=== PATIENT | female | born 1945 | race American Indian/Alaskan Native ===

== ENCOUNTER 2017-08-12 10:20 | Emergency (ER) | payer MEDICARE ==
[2017-08-12 11:08] VITALS: BP 153/77
--- NOTE | 2017-08-12 14:39 | Emergency Department Report ---
ED Extremity Problem HPI - General Chief complaint: Extremity Injury, Lower Stated complaint: LEFT FOOT SWELLING/PAIN Time Seen by Provider: 08/12/17 14:27 Source: patient Mode of arrival: Ambulatory Limitations: No Limitations - History of Present Illness Initial comments: Patient is a 72-year-old female with a history of left-sided footdrop who normally wears a brace with several days ago she was walking in her house without a brace and she stepped on her great toe. Patient states that the toenail lifted slightly has been bleeding since. Patient also has some swelling to the left great toe and the top of the foot. Patient tried to put on a salonpas patch which did not help and her significant disease irritated her skin. Patient states the pain is 5/10 in severity as aching sensation. - Related Data Home Medications Medication Instructions Recorded Confirmed Last Taken Atorvastatin (Nf) [Lipitor] 10 mg PO DAILY 02/22/14 08/05/14 08/05/14 Clopidogrel Bisulfate [Plavix] 75 mg PO DAILY 02/22/14 08/05/14 08/05/14 Hydrochlorothiazide [HCTZ] 100 mg PO DAILY 02/22/14 08/05/14 08/05/14 Metoprolol [Lopressor TAB] 100 mg PO BID 02/22/14 08/05/14 08/05/14 glipiZIDE [glipiZIDE ER] 5 mg PO DAILY 02/22/14 08/05/14 08/05/14 metFORMIN [Glucophage] 100 mg PO BID 02/22/14 08/05/14 08/05/14 Previous Rx's Medication Instructions Recorded Last Taken Type oxyCODONE /ACETAMINOPHEN [Percocet 1 tab PO Q6HR PRN #20 tablet 10/21/14 Unknown Rx 5/325 mg] Cephalexin [Keflex] 500 mg PO Q8HR #30 cap 07/10/15 Unknown Rx Sulfamethoxazole/Trimethoprim 1 each PO BID #14 tablet 08/12/17 Unknown Rx [Bactrim DS TAB] traMADol [Ultram 50 MG tab] 50 mg PO Q6HR PRN #12 tablet 08/12/17 Unknown Rx Allergies Allergy/AdvReac Type Severity Reaction Status Date / Time No Known Allergies Allergy Verified 07/10/15 12:39 ED Review of Systems ROS: Stated complaint: LEFT FOOT SWELLING/PAIN Other details as noted in HPI Comment: All other systems reviewed and negative ED Past Medical Hx - Past Medical History Hx Hypertension: Yes Hx Diabetes: Yes Hx Arthritis: Yes Additional medical history: CAD - Surgical History Hx Coronary Stent: Yes (2000) Additional Surgical History: surgery to left foot. partial hyster. LEFT HIP REPAIR AND REPLACEMENT - Social History Smoking Status: Current Some Day Smoker Substance Use Type: None - Medications Home Medications: Home Medications Medication Instructions Recorded Confirmed Last Taken Type Atorvastatin (Nf) [Lipitor] 10 mg PO DAILY 02/22/14 08/05/14 08/05/14 History Clopidogrel Bisulfate [Plavix] 75 mg PO DAILY 02/22/14 08/05/14 08/05/14 History Hydrochlorothiazide [HCTZ] 100 mg PO DAILY 02/22/14 08/05/14 08/05/14 History Metoprolol [Lopressor TAB] 100 mg PO BID 02/22/14 08/05/14 08/05/14 History glipiZIDE [glipiZIDE ER] 5 mg PO DAILY 02/22/14 08/05/14 08/05/14 History metFORMIN [Glucophage] 100 mg PO BID 02/22/14 08/05/14 08/05/14 History oxyCODONE /ACETAMINOPHEN [Percocet 1 tab PO Q6HR PRN #20 tablet 10/21/14 Unknown Rx 5/325 mg] Cephalexin [Keflex] 500 mg PO Q8HR #30 cap 07/10/15 Unknown Rx Sulfamethoxazole/Trimethoprim 1 each PO BID #14 tablet 08/12/17 Unknown Rx [Bactrim DS TAB] traMADol [Ultram 50 MG tab] 50 mg PO Q6HR PRN #12 tablet 08/12/17 Unknown Rx ED Physical Exam - General Limitations: No Limitations General appearance: alert, in no apparent distress - Head Head exam: Present: atraumatic, normocephalic - Eye Eye exam: Present: normal appearance - ENT ENT exam: Present: mucous membranes moist - Neck Neck exam: Present: normal inspection - Respiratory Respiratory exam: Present: normal lung sounds bilaterally. Absent: respiratory distress, wheezes, rales, rhonchi - Cardiovascular Cardiovascular Exam: Present: regular rate, normal rhythm. Absent: systolic murmur, diastolic murmur, rubs, gallop - GI/Abdominal GI/Abdominal exam: Present: soft, normal bowel sounds. Absent: distended, tenderness, guarding - Extremities Exam Extremities exam: Present: normal inspection, other (the patient's left great toe is partially lifted however it is not detached from the nail bed. Patient has a small amount of serosanguineous drainage from the side of the nail. Patient has some mild swelling to the great toe with some mild erythema.) - Back Exam Back exam: Present: normal inspection - Neurological Exam Neurological exam: Present: alert, oriented X3 - Psychiatric Psychiatric exam: Present: normal affect, normal mood - Skin Skin exam: Present: warm, dry, intact, normal color. Absent: rash ED Course Vital Signs 08/12/17 11:00 Temperature 98.8 F Pulse Rate 81 Blood Pressure 153/77 O2 Sat by Pulse 99 Oximetry ED Medical Decision Making - Medical Decision Making H and clinically has a toenail injury with possible toe cellulitis patient will be started on antibiotics and pain medicine be discharged home. Critical care attestation.: If time is entered above; I have spent that time in minutes in the direct care of this critically ill patient, excluding procedure time. ED Disposition Clinical Impression: Injury of toenail Qualifiers: Encounter type: initial encounter Laterality: left Qualified Code(s): S99.922A - Unspecified injury of left foot, initial encounter Cellulitis, toe Qualifiers: Laterality: left Qualified Code(s): L03.032 - Cellulitis of left toe Disposition: - TO HOME OR SELFCARE Is pt being admited?: No Does the pt Need Aspirin: No Condition: Stable Instructions: Cellulitis (ED), Subungual Hematoma (ED) Prescriptions: Sulfamethoxazole/Trimethoprim [Bactrim DS TAB] 1 each PO BID #14 tablet traMADol [Ultram 50 MG tab] 50 mg PO Q6HR PRN #12 tablet PRN Reason: Pain
== END 2017-08-12 14:45 | disposition home or self-care (01) ==
LOC: ED 10:20
DX: S99.922A Unspecified injury of left foot, initial encounter (principal); L03.032 Cellulitis of left toe; I10 Essential (primary) hypertension; E11.9 Type 2 diabetes mellitus without complications; M19.90 Unspecified osteoarthritis, unspecified site; I25.10 Atherosclerotic heart disease of native coronary artery without angina pectoris; F17.200 Nicotine dependence, unspecified, uncomplicated; Z95.818 Presence of other cardiac implants and grafts; Z96.642 Presence of left artificial hip joint; W22.8XXA Striking against or struck by other objects, initial encounter; Y93.01 Activity, walking, marching and hiking; Y99.8 Other external cause status; Y92.009 Unspecified place in unspecified non-institutional (private) residence as the place of occurrence of the external cause
CPT/HCPCS: 99282

== ENCOUNTER 2017-08-18 17:09 | Inpatient (IN) | payer MEDICARE ==
[2017-08-18] MEDS ORDERED: NACL 0.9% 500 ML 500 ML IV ONE (17:18)
--- NOTE | 2017-08-18 17:46 | Emergency Department Report ---
ED Fever HPI - General Chief Complaint: Fever Stated Complaint: FALL Time Seen by Provider: 08/18/17 17:43 Source: patient, EMS, old records Exam Limitations: other (difficult to obtain a clear history from patient) - History of Present Illness Initial Comments: 72-year-old woman is brought in by EMS with complaint of generalized body pain, including aches and most of the major joints of her body is, including upper extremities of shoulder elbow and wrist, and of lower extremities including knees and ankles; she was found to be hypertensive and tachycardic, and on arrival in the emergency department, she was also found to be febrile. It's difficult to get an accurate history from this patient, who tends to wander in her answers, although she is not overtly confused or demented. She lives by herself, reports that the discomfort in her joints and extremities has been present for approximately a week or so, but also reports that she was seen in the emergency department approximately a week ago, and placed on some unknown medications for possible infection. Review of patient's records show that she was treated for possible cellulitis of her left foot, which has a chronic foot drop, which she relates to a surgical mishap in the past. Patient lives independently, is ambulatory, but needs a brace on her left foot for support, is not aware of the antibiotics that were prescribed or cannot recount her compliance, and finds it difficult to give a coherent development of recurrent discomfort. She is not sure if she has a history of gout or arthritis , and believes she may have had episodes like this in the past. She is not aware of having had a fever. She has no other direct symptoms suggestive of acute infection, no sweating, no diaphoresis, and no sense of generalized feverishness. She has no cough or congestion, and is not aware that her foot is any better or any worse. Timing/Duration: week (1 week) Fever Severity/Quality: no fever, greater than 100.5 F Associated Symptoms: muscle aches, other (joint aches). denies: abdominal pain , chest pain, confusion, headache ED Review of Systems ROS: Stated complaint: FALL Other details as noted in HPI Constitutional: denies: chills, fever Respiratory: denies: cough, shortness of breath Cardiovascular: denies: chest pain, palpitations Endocrine: denies: flushing, increased thirst, increased urine Gastrointestinal: denies: abdominal pain, nausea, vomiting Genitourinary: denies: urgency, dysuria, frequency Musculoskeletal: arthralgia, myalgia Skin: other (skin sensitivity) Neurological: other (chronic foot drop). denies: confusion Psychiatric: denies: anxiety, depression ED Past Medical Hx - Past Medical History Hx Hypertension: Yes Hx Diabetes: Yes Hx Arthritis: Yes Additional medical history: CAD, current tobacco abuse - Surgical History Hx Coronary Stent: Yes (2000) Additional Surgical History: surgery to left foot. partial hyster. LEFT HIP REPAIR AND REPLACEMENT, chronic left foot drop, requires brace - Social History Smoking Status: Current Some Day Smoker Substance Use Type: None - Medications Home Medications: Home Medications Medication Instructions Recorded Confirmed Last Taken Type Atorvastatin (Nf) [Lipitor] 10 mg PO DAILY 02/22/14 08/05/14 08/05/14 History Clopidogrel Bisulfate [Plavix] 75 mg PO DAILY 02/22/14 08/05/14 08/05/14 History Hydrochlorothiazide [HCTZ] 100 mg PO DAILY 02/22/14 08/05/14 08/05/14 History Metoprolol [Lopressor TAB] 100 mg PO BID 02/22/14 08/05/14 08/05/14 History glipiZIDE [glipiZIDE ER] 5 mg PO DAILY 02/22/14 08/05/14 08/05/14 History metFORMIN [Glucophage] 100 mg PO BID 02/22/14 08/05/14 08/05/14 History oxyCODONE /ACETAMINOPHEN [Percocet 1 tab PO Q6HR PRN #20 tablet 10/21/14 Unknown Rx 5/325 mg] Cephalexin [Keflex] 500 mg PO Q8HR #30 cap 07/10/15 Unknown Rx Sulfamethoxazole/Trimethoprim 1 each PO BID #14 tablet 08/12/17 Unknown Rx [Bactrim DS TAB] traMADol [Ultram 50 MG tab] 50 mg PO Q6HR PRN #12 tablet 08/12/17 Unknown Rx ED Physical Exam - General Limitations: No Limitations General appearance: alert, in no apparent distress - Head Head exam: Present: atraumatic - Eye Eye exam: Present: PERRL - ENT ENT exam: Present: mucous membranes moist - Neck Neck exam: Present: tenderness (bilateral, paracervical) - Respiratory Respiratory exam: Absent: respiratory distress, wheezes, rales, rhonchi - Cardiovascular Cardiovascular Exam: Present: tachycardia - GI/Abdominal GI/Abdominal exam: Present: soft. Absent: distended, tenderness, guarding, rebound - Rectal Rectal exam: Present: deferred - Extremities Exam Extremities exam: Present: tenderness (major joints, including elbows, wrist, shoulder, knees, ankles), other (pressure bypass scars, right lower extremity). Absent: joint swelling - Back Exam Back exam: Present: normal inspection - Neurological Exam Neurological exam: Present: alert, CN II-XII intact, other (chronic left foot drop) - Psychiatric Psychiatric exam: Present: flat affect - Skin Skin exam: Present: warm, dry ED Course Vital Signs 08/18/17 08/18/17 08/18/17 17:21 17:27 17:30 Temperature 101.3 F H Pulse Rate 107 H Respiratory 17 Rate Blood Pressure 196/102 212/100 196/102 Blood Pressure [Left] O2 Sat by Pulse Oximetry 08/18/17 08/18/17 08/18/17 17:46 17:47 17:54 Temperature 102.4 F H Pulse Rate 112 H 109 H Respiratory 22 24 24 Rate Blood Pressure 196/102 Blood Pressure 194/98 [Left] O2 Sat by Pulse 99 100 100 Oximetry - Consultations Consultation #1: 08/18/17 18:45 Dr. Aaron Delacruz consult at with symptoms and criteria for sepsis, he will a bit patient for further care and initial antibiotics. ED Medical Decision Making - Lab Data Result diagrams: 08/18/17 17:29 08/18/17 17:29 - EKG Data -: EKG Interpreted by Me (EKG sinus tachycardia, LVH by voltage, nonspecific ST- T changes, no STEMI) EKG shows normal: sinus rhythm Rate: tachycardia - Radiology Data Radiology results: report reviewed (no acute cardiopulmonary abnormalities) Negative for acute infiltrate - Differential Diagnosis fever, sepsis, pneumonia, urinary tract infection, cellulitis Critical care time in (mins) excluding proc time.: 30 Critical care attestation.: If time is entered above; I have spent that time in minutes in the direct care of this critically ill patient, excluding procedure time. Critical Care Time: 30 minutes of critical care time was provided for this patient with sepsis criteria, of unclear source, independent of any billable procedures, of which there were none. ED Disposition Clinical Impression: Sepsis Qualifiers: Sepsis type: sepsis due to unspecified organism Qualified Code(s): A41.9 - Sepsis, unspecified organism Disposition: DC- TO HOME OR SELFCARE Is pt being admited?: Yes Condition: Stable
[2017-08-18] MEDS ORDERED: TYLENOL PO ONE (17:49)
[2017-08-18 17:52] LABS: Basophils # (Auto) 0.1 K/mm3 (0.0-0.1); Basophils % (Auto) 0.7 % (0.0-1.8); Eosinophils % (Auto) 0.2 % (0.0-4.3); Hematocrit 31.2 % (30.3-42.9); Hemoglobin 10.6 gm/dl (10.1-14.3); Lymphocytes # (Auto) 2.6 K/mm3 (1.2-5.4); Lymphocytes % (Auto) 19.8 % (13.4-35.0); Mean Corpuscular HGB Conc 34 % (30-34); Mean Corpuscular Hemoglobin 30 pg (28-32); Mean Corpuscular Volume 89 fl (79-97); Monocytes # (Auto) 0.7 K/mm3 (0.0-0.8); Monocytes % (Auto) 5.1 % (0.0-7.3); Platelet Count 266 K/mm3 (140-440); Red Blood Count 3.52 M/mm3 (3.65-5.03); Red Cell Distribution Width 14.7 % (13.2-15.2)
--- NOTE | 2017-08-18 17:58 | XRay Report ---
FINAL REPORT EXAM: XR CHEST 1V AP HISTORY: possible Sepsis TECHNIQUE: upright single view chest PRIORS: None. FINDINGS: Cardiac and mediastinal contours are unremarkable. No focal pulmonary infiltrate is identified. No pleural fluid collection seen. Pulmonary vasculature is unremarkable. IMPRESSION: Negative single-view chest
[2017-08-18] MEDS ORDERED: ROXICODONE PO ONE (18:00)
[2017-08-18 18:04] LABS: INR 1.02 (0.87-1.13)
[2017-08-18 18:08] LABS: Albumin 3.6 g/dL (3.9-5); Calcium 9.2 mg/dL (8.4-10.2)
[2017-08-18] MEDS ORDERED: NACL 0.9% 1000 ML 1,000 ML IV ONE (18:12)
[2017-08-18] MEDS ORDERED: SODIUM CHLORIDE FLUSH SYRINGE 10 ML IV PRN (18:48)
[2017-08-18] MEDS ORDERED: ZOFRAN IV PRN (18:48)
[2017-08-18] MEDS ORDERED: VANCOMYCIN VIAL IV ONE (18:48)
[2017-08-18] MEDS ORDERED: PROVENTIL IH PRN (18:48)
[2017-08-18] MEDS ORDERED: NACL 0.9% 1000 ML IV ONE (18:48)
[2017-08-18] MEDS ORDERED: PERCOCET 5/325 PO PRN ×2 (18:51→20:00)
[2017-08-18] MEDS ORDERED: ULTRAM PO PRN (18:51)
[2017-08-18] MEDS ORDERED: D50W (25GM) Syringe IV PRN (18:52)
--- NOTE | 2017-08-18 18:53 | History and Physical Report ---
History of Present Illness Chief complaint: I feel sick History of present illness: 72 YO Female with HTN, DM, OA, Nicotine Dependence, Debility, Neuropathy, CAD presents to ED for evaluation. Pt states that she has experienced generalized weakness, body aches and feeling sick for the past 1 week, with worsening symptoms over the past 1 day. EMS was notified and upon arrival the patient was found to have fever to 101.3. A code sepsis was called and the patient transported to [facility] for further care and evaluation. Pt seen and evaluated in ED and found to have ARF, as well as sepsis, and Hypertensive emergency. Pt admitted to [facility] unit. Past History Past Medical History: arthritis, CAD, diabetes, hypertension Past Surgical History: hysterectomy, total hip replacement, Other Social history: . denies: smoking, alcohol abuse, prescription drug abuse Family history: diabetes, hypertension Medications and Allergies Allergies Allergy/AdvReac Type Severity Reaction Status Date / Time No Known Allergies Allergy Verified 07/10/15 12:39 Home Medications Medication Instructions Recorded Confirmed Last Taken Type Atorvastatin (Nf) [Lipitor] 10 mg PO DAILY 02/22/14 08/05/14 08/05/14 History Clopidogrel Bisulfate [Plavix] 75 mg PO DAILY 02/22/14 08/05/14 08/05/14 History Hydrochlorothiazide [HCTZ] 100 mg PO DAILY 02/22/14 08/05/14 08/05/14 History Metoprolol [Lopressor TAB] 100 mg PO BID 02/22/14 08/05/14 08/05/14 History glipiZIDE [glipiZIDE ER] 5 mg PO DAILY 02/22/14 08/05/14 08/05/14 History metFORMIN [Glucophage] 100 mg PO BID 02/22/14 08/05/14 08/05/14 History oxyCODONE /ACETAMINOPHEN [Percocet 1 tab PO Q6HR PRN #20 tablet 10/21/14 Unknown Rx 5/325 mg] Cephalexin [Keflex] 500 mg PO Q8HR #30 cap 07/10/15 Unknown Rx Sulfamethoxazole/Trimethoprim 1 each PO BID #14 tablet 08/12/17 Unknown Rx [Bactrim DS TAB] traMADol [Ultram 50 MG tab] 50 mg PO Q6HR PRN #12 tablet 08/12/17 Unknown Rx Active Meds: Active Medications Acetaminophen (Tylenol) 650 mg PO Q4H PRN PRN Reason: Pain MILD(1-3)/Fever >100.5/SHAH Albuterol (Proventil) 2.5 mg IH Q4HRT PRN PRN Reason: Shortness Of Breath Atorvastatin Calcium (Lipitor) 10 mg PO DAILY [facility] Sodium Chloride (Nacl 0.9% 1000 Ml) 1,000 mls @ 999 mls/hr IV BOLUS ONE Stop: 08/18/17 19:12 Last Admin: 08/18/17 17:50 Dose: 999 mls/hr Piperacillin Sod/Tazobactam Sod (Zosyn/Ns 4.5gm/100ml) 4.5 gm in 100 mls @ 200 mls/hr IV Q8HR [facility]; Protocol Ondansetron HCl (Zofran) 4 mg IV Q8H PRN PRN Reason: Nausea And Vomiting Sodium Chloride (Sodium Chloride Flush Syringe 10 Ml) 10 ml IV BID HARIKA Sodium Chloride (Sodium Chloride Flush Syringe 10 Ml) 10 ml IV PRN PRN PRN Reason: LINE FLUSH Vancomycin HCl (Vancomycin Pharmacy To Dose) 1 each IV PKCONSULT [facility] Vancomycin HCl (Vancomycin Vial) 1,250 mg 20 mg/kg (1250 mg) IV ONCE ONE; Protocol Stop: 08/18/17 18:49 Review of Systems Constitutional: fever, weakness, malaise Ears, nose, mouth and throat: no ear pain, no ear discharge, no tinnitis, no decreased hearing, no nose pain, no nasal congestion Breasts: no change in shape, no swelling, no mass Cardiovascular: no chest pain, no orthopnea, no palpitations, no rapid/ irregular heart beat, no edema, no syncope Respiratory: no cough, no cough with sputum, no excessive sputum, no hemoptysis , no shortness of breath, no dyspnea on exertion Gastrointestinal: no abdominal pain, no nausea, no vomiting, no diarrhea, no constipation Genitourinary Female: no pelvic pain, no flank pain, no menorrhagia Rectal: no pain, no incontinence, no bleeding Musculoskeletal: no neck stiffness, no neck pain, no shooting arm pain, no arm numbness/tingling, no low back pain, no shooting leg pain, no leg numbness/ tingling, no hot joints, no morning stiffness Integumentary: no rash, no pruritis, no redness, no sores, no wounds, no jaundice, no boils Neurological: no head injury, no transient paralysis, no paralysis, no weakness , no parathesias, no numbness, no tingling, no seizures, no syncope Psychiatric: no anxiety, no memory loss, no change in sleep habits, no sleep disturbances, no insomnia, no hypersomnia, no change in appetite Exam - Constitutional Vitals: Temp Pulse Resp BP Pulse Ox 102.4 F H 109 H 24 194/98 100 08/18/17 17:47 08/18/17 17:47 08/18/17 17:54 08/18/17 17:47 08/18/17 17:54 General appearance: Present: mild distress - EENT Eyes: Present: PERRL ENT: hearing intact, clear oral mucosa - Neck Neck: Present: supple, normal ROM - Respiratory Respiratory effort: normal Respiratory: bilateral: CTA - Cardiovascular Heart Sounds: Present: S1 & S2. Absent: rub, click - Extremities Extremities: pulses symmetrical, No edema Peripheral Pulses: abnormal (capillary refill greated than 3.6 seconds) - Abdominal General gastrointestinal: Present: soft, non-tender, non-distended, normal bowel sounds Female genitourinary: Present: normal - Integumentary Integumentary: Present: dry, clammy, decreased turgor - Musculoskeletal Musculoskeletal: generalized weakness - Psychiatric Psychiatric: appropriate mood/affect, intact judgment & insight - Neurologic Neurologic: CNII-XII intact, moves all extremities Results - Labs CBC & Chem 7: 08/18/17 17:29 08/18/17 17:29 Labs: Abnormal lab results 08/18/17 08/18/17 Range/Units 17:29 17:29 WBC 12.9 H (4.5-11.0) K/mm3 RBC 3.52 L (3.65-5.03) M/mm3 Seg Neutrophils % 74.2 H (40.0-70.0) % Seg Neutrophils # 9.6 H (1.8-7.7) K/mm3 Sodium 134 L (137-145) mmol/L Carbon Dioxide 18 L (22-30) mmol/L BUN 22 H (7-17) mg/dL Creatinine 1.9 H (0.7-1.2) mg/dL Albumin 3.6 L (3.9-5) g/dL Assessment and Plan - Patient Problems (1) Sepsis Current Visit: Yes Status: Acute Qualifiers: Sepsis type: sepsis due to unspecified organism Qualified Code(s): A41.9 - Sepsis, unspecified organism Plan to address problem: IV antibiotics, IVF resuscitation therapy, serial lactic acid, monitor uop q shift, blood cultures, urinalysis, CBC, Chest X ray. (2) ARF (acute renal failure) Current Visit: Yes Status: Acute Qualifiers: Acute renal failure type: with acute tubular necrosis Qualified Code(s): N17.0 - Acute kidney failure with tubular necrosis Plan to address problem: IVF resuscitation therapy, urine electrolytes, monitor uop q shift, monitor serum creatnine (3) Nicotine dependence Current Visit: Yes Status: Acute Qualifiers: Substance use status: in withdrawal Plan to address problem: supportive care, (4) Diabetes Current Visit: Yes Status: Acute Plan to address problem: consistent carbohydrate diet, insulin, accu check (5) Hypertensive urgency Current Visit: No Status: Acute Plan to address problem: monitor bp q shift, resume prehospital antihypertensive therapy. IV hydralazine prn (6) DVT prophylaxis Current Visit: Yes Status: Acute
[2017-08-18] MEDS ORDERED: VANCOMYCIN PHARMACY TO DOSE IV SCH (19:00)
[2017-08-18] MEDS ORDERED: NACL 0.9% 1000 ML 1,000 ML ONE ×2 (19:49→21:00)
[2017-08-18 20:00] LABS: Bilirubin,Urine NEG (Negative); Blood,Urine SM (Negative); Color,Urine Yellow (Yellow); Urobilinogen,Urine < 2.0 mg/dL (<2.0)
[2017-08-18] MEDS ORDERED: VANCOMYCIN 1,250 MG in NACL 0.9% 250ML 250 ML IV ONE (20:00)
[2017-08-18] MEDS: ZOSYN/NS 2.25 GM/50ML 2.25 GM/50 ML BAG IV SCH (20:20)
[2017-08-18] MEDS: LOPRESSOR PO SCH (21:34)
[2017-08-18] MEDS ORDERED: ZOSYN/NS 4.5GM/100ML 4.5 GM/100 ML VIAL IV SCH (22:00)
[2017-08-18] MEDS: SODIUM CHLORIDE FLUSH SYRINGE 10 ML IV SCH (22:55)
[2017-08-19] MEDS: ULTRAM PO PRN ×4 (00:11→20:50)
[2017-08-19] MEDS: HumaLOG SUB-Q SCH ×5 (00:12→22:18)
[2017-08-19] MEDS: ZOSYN/NS 2.25 GM/50ML 2.25 GM/50 ML BAG IV SCH ×3 (05:41→22:18)
--- NOTE | 2017-08-19 09:06 | Progress Note ---
Assessment and Plan Assessment and plan: Sepsis Continue IV antibiotics, IVF resuscitation therapy, monitor uop q shift, follow blood cultures ARF (acute renal failure) IVF resuscitation therapy, urine electrolytes, monitor uop q shift, monitor serum creatinine Nicotine dependence Pt counseled on cessation, supportive care, Diabetes consistent carbohydrate diet, insulin, accu check, A1C 7.2 Hypertensive urgency Moderately controlled now, monitor bp q shift, resume prehospital antihypertensive therapy. IV hydralazine prn DVT prophylaxis History Interval history: Patient seen and examined. No new complaints at this time. Labs and nursing notes reviewed. Hospitalist Physical - Physical exam Narrative exam: General appearance: Present: no acute distress, well-nourished - EENT Eyes: Present: PERRL, EOM intact ENT: hearing intact, clear oral mucosa - Neck Present: supple, normal ROM - Respiratory Respiratory effort: normal Respiratory: bilateral: CTA - Cardiovascular Rhythm: regular Heart Sounds: Present: S1 & S2 - Extremities Extremities: no ischemia, No edema - Abdominal General gastrointestinal: soft, non-tender, non-distended - Integumentary Integumentary: Present: clear, warm, dry - Psychiatric Psychiatric: appropriate mood/affect, intact judgment & insight, cooperative - Neurologic Neurologic: CNII-XII intact, moves all extremities - Constitutional Vitals: Temp Pulse Resp BP Pulse Ox 99.0 F 81 20 179/85 99 08/18/17 19:30 08/18/17 21:34 08/18/17 21:16 08/18/17 21:34 08/18/17 21:16 Results - Labs CBC & Chem 7: 08/18/17 17:29 08/19/17 12:46 Labs: Laboratory Last Values WBC 12.9 K/mm3 (4.5-11.0) H 08/18/17 17:29 RBC 3.52 M/mm3 (3.65-5.03) L 08/18/17 17:29 Hgb 10.6 gm/dl (10.1-14.3) 08/18/17 17:29 Hct 31.2 % (30.3-42.9) 08/18/17 17:29 MCV 89 fl (79-97) 08/18/17 17:29 MCH 30 pg (28-32) 08/18/17 17:29 MCHC 34 % (30-34) 08/18/17 17:29 RDW 14.7 % (13.2-15.2) 08/18/17 17:29 Plt Count 266 K/mm3 (140-440) 08/18/17 17:29 Lymph % (Auto) 19.8 % (13.4-35.0) 08/18/17 17:29 [place] % (Auto) 5.1 % (0.0-7.3) 08/18/17 17:29 Eos % (Auto) 0.2 % (0.0-4.3) 08/18/17 17:29 Baso % (Auto) 0.7 % (0.0-1.8) 08/18/17 17:29 Lymph # 2.6 K/mm3 (1.2-5.4) 08/18/17 17:29 [place] # 0.7 K/mm3 (0.0-0.8) 08/18/17 17:29 Eos # 0.0 K/mm3 (0.0-0.4) 08/18/17 17:29 Baso # 0.1 K/mm3 (0.0-0.1) 08/18/17 17:29 Seg Neutrophils % 74.2 % (40.0-70.0) H 08/18/17 17:29 Seg Neutrophils # 9.6 K/mm3 (1.8-7.7) H 08/18/17 17:29 PT 13.9 Sec. (12.2-14.9) 08/18/17 17:29 INR 1.02 (0.87-1.13) 08/18/17 17:29 VBG pH 7.411 (7.320-7.420) 08/18/17 17:29 Sodium 134 mmol/L (137-145) L 08/18/17 17:29 Potassium 4.4 mmol/L (3.6-5.0) 08/18/17 17:29 Chloride 98.2 mmol/L (98-107) 08/18/17 17:29 Carbon Dioxide 18 mmol/L (22-30) L 08/18/17 17:29 Anion Gap 22 mmol/L 08/18/17 17:29 BUN 22 mg/dL (7-17) H 08/18/17 17:29 Creatinine 1.9 mg/dL (0.7-1.2) H 08/18/17 17:29 Estimated GFR 32 ml/min 08/18/17 17:29 BUN/Creatinine Ratio 12 % 08/18/17 17:29 Glucose 67 mg/dL (65-100) 08/18/17 17:29 POC Glucose 199 (70-105) H 08/19/17 06:50 Lactic Acid 1.40 mmol/L (0.7-2.0) 08/19/17 01:06 Uric Acid 5.6 mg/dL (3.5-7.6) 08/18/17 18:07 Calcium 9.2 mg/dL (8.4-10.2) 08/18/17 17:29 Total Bilirubin 0.20 mg/dL (0.1-1.2) 08/18/17 17:29 AST 15 units/L (5-40) 08/18/17 17:29 ALT 14 units/L (7-56) 08/18/17 17:29 Alkaline Phosphatase 95 units/L (35-129) 08/18/17 17:29 Total Protein 7.8 g/dL (6.3-8.2) 08/18/17 17:29 Albumin 3.6 g/dL (3.9-5) L 08/18/17 17:29 Albumin/Globulin Ratio 0.9 % 08/18/17 17:29 Urine Color Yellow (Yellow) 08/18/17 17:19 Urine Turbidity Clear (Clear) 08/18/17 17:19 Urine pH 5.0 (5.0-7.0) 08/18/17 17:19 Ur Specific [place] 1.010 (1.003-1.030) 08/18/17 17:19 Urine Protein 100 mg/dl mg/dL (Negative) 08/18/17 17:19 Urine Glucose (UA) Neg mg/dL (Negative) 08/18/17 17:19 Urine Ketones Neg mg/dL (Negative) 08/18/17 17:19 Urine Blood Sm (Negative) 08/18/17 17:19 Urine Nitrite Neg (Negative) 08/18/17 17:19 Urine Bilirubin Neg (Negative) 08/18/17 17:19 Urine Urobilinogen < 2.0 mg/dL (<2.0) 08/18/17 17:19 Ur Leukocyte Esterase Tr (Negative) 05/06/18 17:19 Urine WBC (Auto) 5.0 /HPF (0.0-6.0) 18 17:19 Urine RBC (Auto) 9.0 /HPF (0.0-6.0) 18 17:19 U Epithel Cells (Auto) 3.0 /HPF (0-13.0) 18 17:19
[2017-08-19] MEDS: LOPRESSOR PO SCH ×2 (09:33→22:21)
[2017-08-19] MEDS: PLAVIX PO SCH (09:33)
[2017-08-19] MEDS: HCTZ PO SCH (09:33)
[2017-08-19] MEDS: TYLENOL PO PRN ×2 (09:50→22:17)
[2017-08-19] MEDS: VANCOMYCIN/NS 1 GM/250 ML 1 GM/250 ML BAG IV SCH (09:58)
[2017-08-19] MEDS ORDERED: HYDROCHLOROTHIAZIDE PO SCH (10:00)
[2017-08-19] MEDS ORDERED: NACL 0.9% 1000 ML 1,000 ML IV SCH (10:00)
[2017-08-19 13:22] LABS: Calcium 8.6 mg/dL (8.4-10.2)
[2017-08-19] MEDS: SODIUM CHLORIDE FLUSH SYRINGE 10 ML IV SCH (14:50)
[2017-08-19] MEDS ORDERED: VANCOMYCIN VIAL 500 MG in NACL 0.9% 100 ML IV SCH (18:00)
[2017-08-20] MEDS: SODIUM CHLORIDE FLUSH SYRINGE 10 ML IV SCH ×2 (00:34→10:18)
[2017-08-20] MEDS: ULTRAM PO PRN ×2 (03:52→09:28)
[2017-08-20] MEDS: ZOSYN/NS 2.25 GM/50ML 2.25 GM/50 ML BAG IV SCH ×2 (06:21→13:36)
[2017-08-20] MEDS: HumaLOG SUB-Q SCH ×2 (08:08→13:35)
[2017-08-20] MEDS: LOPRESSOR PO SCH (09:19)
[2017-08-20] MEDS: PLAVIX PO SCH (09:19)
[2017-08-20] MEDS: HCTZ PO SCH (09:20)
[2017-08-20] MEDS ORDERED: NORVASC PO SCH (10:00)
[2017-08-20] MEDS: VANCOMYCIN/NS 1 GM/250 ML 1 GM/250 ML BAG IV SCH (10:13)
--- NOTE | 2017-08-20 13:24 | Discharge Summary ---
Providers - Providers Date of Admission: 08/18/17 18:48 Attending physician: GRACE CARROLL MD Primary care physician: COGNOS BI ADMINISTRATOR Hospitalization Condition: Stable Disposition: DC-30 STILL A PATIENT Exam - Constitutional Vitals: Temp Pulse Resp BP Pulse Ox 98.6 F 65 18 187/71 100 08/20/17 07:58 08/20/17 10:26 08/20/17 07:58 08/20/17 10:26 08/20/17 10:00 Plan Diet: low fat, low cholesterol, low salt, diabetic Follow up with: PRIMARY CARE, [Primary Care Provider] - 3-5 Days ART ALCARAZ MD [Staff Physician] - 7 Days Prescriptions: amLODIPine [Norvasc] 10 mg PO QDAY #30 tablet
[2017-08-20 15:27] VITALS: BP 150/70
[2017-08-21 00:59] LABS: Basophils # (Auto) 0.1 K/mm3 (0.0-0.1); Eosinophils # (Auto) 0.3 K/mm3 (0.0-0.4); Eosinophils % (Auto) 2.7 % (0.0-4.3); Hematocrit 27.3 % (30.3-42.9); Hemoglobin 9.1 gm/dl (10.1-14.3); Lymphocytes # (Auto) 3.5 K/mm3 (1.2-5.4); Lymphocytes % (Auto) 33.2 % (13.4-35.0); Mean Corpuscular HGB Conc 34 % (30-34); Mean Corpuscular Hemoglobin 30 pg (28-32); Mean Corpuscular Volume 89 fl (79-97); Monocytes # (Auto) 0.6 K/mm3 (0.0-0.8); Monocytes % (Auto) 5.5 % (0.0-7.3); Platelet Count 266 K/mm3 (140-440); Red Blood Count 3.05 M/mm3 (3.65-5.03)
== END 2017-08-20 15:35 | disposition home or self-care (01) | DRG 871 ==
LOC: ED 17:09 → 2B-ACE 18:48
PROVIDERS: ADMIT Internal Medicine; ATTEND Internal Medicine
DX: A41.9 Sepsis, unspecified organism (principal); N17.0 Acute kidney failure with tubular necrosis; I16.1 Hypertensive emergency; M19.90 Unspecified osteoarthritis, unspecified site; I10 Essential (primary) hypertension; I25.10 Atherosclerotic heart disease of native coronary artery without angina pectoris; Z96.642 Presence of left artificial hip joint; E11.40 Type 2 diabetes mellitus with diabetic neuropathy, unspecified; F17.200 Nicotine dependence, unspecified, uncomplicated; Z95.5 Presence of coronary angioplasty implant and graft; Z90.710 Acquired absence of both cervix and uterus; Z79.899 Other long term (current) drug therapy; Z82.49 Family history of ischemic heart disease and other diseases of the circulatory system; Z83.3 Family history of diabetes mellitus
CPT/HCPCS: 36415; 71045; 80048; 80053; 81001; 82140; 82805; 82962; 83036; 84550; 85025; 85610; 87040; 87086; 93005; 93010; 96361; 96365; 96367; 99406; A9270-GY; J1815; J2543; J3370; J7030; J7050

== ENCOUNTER 2017-09-24 12:17 | Emergency (ER) | payer MEDICARE ==
[2017-09-24 12:28] VITALS: BP 163/86
[2017-09-24] MEDS ORDERED: TORADOL IM ONE (12:37)
--- NOTE | 2017-09-24 12:43 | Emergency Department Report ---
ED Neck Pain/Injury HPI - General Chief Complaint: Headache Stated Complaint: HEADACHE Time Seen by Provider: 09/24/17 12:33 Mode of arrival: Ambulatory Limitations: No Limitations - History of Present Illness Initial Comments: Patient is a 72-year-old female who is presenting with right-sided neck and headache. Patient states that she is having pain in the right neck hurts most when she is moving or when she is lying flat. Patient states is radiating to the right side of her head. Patient denies any fevers chills but does have some nausea secondary to pain. Patient denies any history of migraines or trauma. Patient does have a history of arthritis. Patient has a history of taking gabapentin was been out of this medication for the past 2 months. MD Complaint: neck pain - Related Data Home Medications Medication Instructions Recorded Confirmed Last Taken Atorvastatin (Nf) [Lipitor] 10 mg PO DAILY 02/22/14 08/19/17 08/05/14 Clopidogrel Bisulfate [Plavix] 75 mg PO DAILY 02/22/14 08/19/17 08/05/14 Hydrochlorothiazide [HCTZ] 100 mg PO DAILY 02/22/14 08/19/17 08/05/14 Metoprolol [Lopressor TAB] 100 mg PO BID 02/22/14 08/19/17 08/05/14 glipiZIDE [glipiZIDE ER] 5 mg PO DAILY 02/22/14 08/19/17 08/05/14 metFORMIN [Glucophage] 100 mg PO BID 02/22/14 08/19/17 08/05/14 Previous Rx's Medication Instructions Recorded Last Taken Type oxyCODONE /ACETAMINOPHEN [Percocet 1 tab PO Q6HR PRN #20 tablet 10/21/14 Unknown Rx 5/325 mg] Cephalexin [Keflex] 500 mg PO Q8HR #30 cap 07/10/15 Unknown Rx Sulfamethoxazole/Trimethoprim 1 each PO BID #14 tablet 08/12/17 Unknown Rx [Bactrim DS TAB] traMADol [Ultram 50 MG tab] 50 mg PO Q6HR PRN #12 tablet 08/12/17 Unknown Rx amLODIPine [Norvasc] 10 mg PO QDAY #30 tablet 08/20/17 Unknown Rx Gabapentin [Neurontin] 300 mg PO BID #60 cap 09/24/17 Unknown Rx methOCARBAMOL [Robaxin TAB] 500 mg PO Q6H PRN #15 tablet 09/24/17 Unknown Rx traMADol [Ultram] 50 mg PO Q6HR PRN #15 tablet 09/24/17 Unknown Rx Allergies Allergy/AdvReac Type Severity Reaction Status Date / Time No Known Allergies Allergy Verified 07/10/15 12:39 ED Review of Systems ROS: Stated complaint: HEADACHE Other details as noted in HPI Comment: All other systems reviewed and negative ED Past Medical Hx - Past Medical History Hx Hypertension: Yes Hx Diabetes: Yes Hx Arthritis: Yes Additional medical history: CAD, current tobacco abuse - Surgical History Hx Coronary Stent: Yes (2000) Additional Surgical History: surgery to left foot. partial hyster. LEFT HIP REPAIR AND REPLACEMENT, chronic left foot drop, requires brace - Social History Smoking Status: Current Every Day Smoker Substance Use Type: None - Medications Home Medications: Home Medications Medication Instructions Recorded Confirmed Last Taken Type Atorvastatin (Nf) [Lipitor] 10 mg PO DAILY 02/22/14 08/19/17 08/05/14 History Clopidogrel Bisulfate [Plavix] 75 mg PO DAILY 02/22/14 08/19/17 08/05/14 History Hydrochlorothiazide [HCTZ] 100 mg PO DAILY 02/22/14 08/19/17 08/05/14 History Metoprolol [Lopressor TAB] 100 mg PO BID 02/22/14 08/19/17 08/05/14 History glipiZIDE [glipiZIDE ER] 5 mg PO DAILY 02/22/14 08/19/17 08/05/14 History metFORMIN [Glucophage] 100 mg PO BID 02/22/14 08/19/17 08/05/14 History oxyCODONE /ACETAMINOPHEN [Percocet 1 tab PO Q6HR PRN #20 tablet 10/21/14 Unknown Rx 5/325 mg] Cephalexin [Keflex] 500 mg PO Q8HR #30 cap 07/10/15 08/19/17 Unknown Rx Sulfamethoxazole/Trimethoprim 1 each PO BID #14 tablet 08/12/17 08/19/17 Unknown Rx [Bactrim DS TAB] traMADol [Ultram 50 MG tab] 50 mg PO Q6HR PRN #12 tablet 08/12/17 08/19/17 Unknown Rx amLODIPine [Norvasc] 10 mg PO QDAY #30 tablet 08/20/17 Unknown Rx Gabapentin [Neurontin] 300 mg PO BID #60 cap 09/24/17 Unknown Rx methOCARBAMOL [Robaxin TAB] 500 mg PO Q6H PRN #15 tablet 09/24/17 Unknown Rx traMADol [Ultram] 50 mg PO Q6HR PRN #15 tablet 09/24/17 Unknown Rx ED Physical Exam - General Limitations: No Limitations General appearance: alert, in no apparent distress - Head Head exam: Present: atraumatic, normocephalic - Eye Eye exam: Present: normal appearance - ENT ENT exam: Present: mucous membranes moist - Neck Neck exam: Present: normal inspection, tenderness (right sided). Absent: full ROM (decreased range of motion secondary to pain) - Respiratory Respiratory exam: Present: normal lung sounds bilaterally. Absent: respiratory distress, wheezes, rales, rhonchi - Cardiovascular Cardiovascular Exam: Present: regular rate, normal rhythm. Absent: systolic murmur, diastolic murmur, rubs, gallop - GI/Abdominal GI/Abdominal exam: Present: soft, normal bowel sounds - Extremities Exam Extremities exam: Present: normal inspection - Back Exam Back exam: Present: normal inspection - Neurological Exam Neurological exam: Present: alert, oriented X3 - Psychiatric Psychiatric exam: Present: normal affect, normal mood - Skin Skin exam: Present: warm, dry, intact, normal color. Absent: rash ED Course Vital Signs 09/24/17 12:25 Temperature 98.9 F Pulse Rate 107 H Respiratory 16 Rate Blood Pressure 163/86 O2 Sat by Pulse 99 Oximetry ED Medical Decision Making - Medical Decision Making Patient is only having pain when she turns her head to the right. Patient has no midline tenderness. Patient most likely has arthritis flareup of the cervical spine. Patient be started on pain medicine be discharged home. Critical care attestation.: If time is entered above; I have spent that time in minutes in the direct care of this critically ill patient, excluding procedure time. ED Disposition Clinical Impression: Cervical arthritis Disposition: DC- TO HOME OR SELFCARE Is pt being admited?: No Does the pt Need Aspirin: No Condition: Stable Prescriptions: Gabapentin [Neurontin] 300 mg PO BID #60 cap methOCARBAMOL [Robaxin TAB] 500 mg PO Q6H PRN #15 tablet PRN Reason: Pain traMADol [Ultram] 50 mg PO Q6HR PRN #15 tablet PRN Reason: Pain Referrals: JOSE RAMIREZ MD [Staff Physician] - 3-5 Days
== END 2017-09-24 12:58 | disposition home or self-care (01) ==
LOC: ED 12:17
DX: M47.812 Spondylosis without myelopathy or radiculopathy, cervical region (principal); I10 Essential (primary) hypertension; E11.9 Type 2 diabetes mellitus without complications; M19.90 Unspecified osteoarthritis, unspecified site; F17.200 Nicotine dependence, unspecified, uncomplicated; Z95.5 Presence of coronary angioplasty implant and graft
CPT/HCPCS: 96372; 99282; J1885

== ENCOUNTER 2017-09-25 12:56 | Emergency (ER) | payer MEDICARE ==
[2017-09-25 13:41] VITALS: BP 157/79
== END 2017-09-25 15:16 | disposition left against medical advice (07) ==
LOC: ED 12:56
DX: R51 Headache (principal); Z53.21 Procedure and treatment not carried out due to patient leaving prior to being seen by health care provider

== ENCOUNTER 2017-12-17 17:06 | Emergency (ER) | payer BC, MEDICARE ==
[2017-12-17 17:27] VITALS: BP 165/85
[2017-12-17] MEDS ORDERED: TYLENOL #3 PO ONE (20:46)
--- NOTE | 2017-12-17 20:55 | Emergency Department Report ---
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 she twisted it on Saturday now pain erythema and swelling patient states she had her foot out of her MICHAELA boot to wear regular shoes and twisted her ankle and foot pain as 5/10 and aching exacerbated by movement palpation weight-bearing pain is relieved by nothing patient is ambulatory with cane at baseline per patient MD Complaint: foot injury Onset/Timin -: Gradual Injury: Foot: Left (swelling pain ) Type of Injury: eversion Place: home Severity scale (0 -10): 4 Improves With: nothing Worsens With: weight bearing, movement, palpation Context: walking, other Associated Symptoms: swelling, tingling, able to partially bear weight - Related Data Home Medications Medication Instructions Recorded Confirmed Last Taken Atorvastatin (Nf) [Lipitor] 10 mg PO DAILY 02/22/14 08/19/17 08/05/14 Clopidogrel Bisulfate [Plavix] 75 mg PO DAILY 02/22/14 08/19/17 08/05/14 Hydrochlorothiazide [HCTZ] 100 mg PO DAILY 02/22/14 08/19/17 08/05/14 Metoprolol [Lopressor TAB] 100 mg PO BID 02/22/14 08/19/17 08/05/14 glipiZIDE [glipiZIDE ER] 5 mg PO DAILY 02/22/14 08/19/17 08/05/14 metFORMIN [Glucophage] 100 mg PO BID 02/22/14 08/19/17 08/05/14 Previous Rx's Medication Instructions Recorded Last Taken Type oxyCODONE /ACETAMINOPHEN [Percocet 1 tab PO Q6HR PRN #20 tablet 10/21/14 Unknown Rx 5/325 mg] cephALEXin [Keflex] 500 mg PO Q8HR #30 cap 07/10/15 Unknown Rx Sulfamethoxazole/Trimethoprim 1 each PO BID #14 tablet 08/12/17 Unknown Rx [Bactrim DS TAB] traMADol [Ultram 50 MG tab] 50 mg PO Q6HR PRN #12 tablet 08/12/17 Unknown Rx amLODIPine [Norvasc] 10 mg PO QDAY #30 tablet 08/20/17 Unknown Rx Gabapentin [Neurontin] 300 mg PO BID #60 cap 09/24/17 Unknown Rx methOCARBAMOL [Robaxin TAB] 500 mg PO Q6H PRN #15 tablet 09/24/17 Unknown Rx traMADol [Ultram] 50 mg PO Q6HR PRN #15 tablet 09/24/17 Unknown Rx Acetaminophen/Codeine [Tylenol 1 tab PO Q6H PRN #12 tab 12/17/17 Unknown Rx /Codeine # 3 tab] Cyclobenzaprine [Flexeril] 10 mg PO TID PRN #30 tablet 12/17/17 Unknown Rx Allergies Allergy/AdvReac Type Severity Reaction Status Date / Time No Known Allergies Allergy Verified 12/17/17 17:23 ED Review of Systems ROS: Stated complaint: FOOT INJURY/PAIN Other details as noted in HPI Constitutional: denies: chills, fever Eyes: denies: eye pain, eye discharge, vision change ENT: denies: ear pain, throat pain Respiratory: denies: cough, shortness of breath, wheezing Cardiovascular: denies: chest pain, palpitations Endocrine: no symptoms reported Gastrointestinal: denies: abdominal pain, nausea, diarrhea Genitourinary: denies: urgency, dysuria, discharge Musculoskeletal: joint swelling, arthralgia, myalgia Skin: denies: rash, lesions Neurological: denies: headache, weakness, paresthesias Psychiatric: denies: anxiety, depression Hematological/Lymphatic: denies: easy bleeding, easy bruising ED Past Medical Hx - Past Medical History Hx Hypertension: Yes Hx Diabetes: Yes Hx Arthritis: Yes Additional medical history: CAD - Surgical History Hx Coronary Stent: Yes (2000) Additional Surgical History: surgery to left foot. partial hyster. LEFT HIP REPAIR AND REPLACEMENT, chronic left foot drop, requires brace - Social History Smoking Status: Current Every Day Smoker Substance Use Type: None - Medications Home Medications: Home Medications Medication Instructions Recorded Confirmed Last Taken Type Atorvastatin (Nf) [Lipitor] 10 mg PO DAILY 02/22/14 08/19/17 08/05/14 History Clopidogrel Bisulfate [Plavix] 75 mg PO DAILY 02/22/14 08/19/17 08/05/14 History Hydrochlorothiazide [HCTZ] 100 mg PO DAILY 1108/19/17 08/05/14 History Metoprolol [Lopressor TAB] 100 mg PO BID 02/22/14 08/19/17 08/05/14 History glipiZIDE [glipiZIDE ER] 5 mg PO DAILY 02/22/14 08/19/17 08/05/14 History metFORMIN [Glucophage] 100 mg PO BID 02/22/14 08/19/17 08/05/14 History oxyCODONE /ACETAMINOPHEN [Percocet 1 tab PO Q6HR PRN #20 tablet 10/21/14 Unknown Rx 5/325 mg] cephALEXin [Keflex] 500 mg PO Q8HR #30 cap 07/10/15 08/19/17 Unknown Rx Sulfamethoxazole/Trimethoprim 1 each PO BID #14 tablet 08/12/17 08/19/17 Unknown Rx [Bactrim DS TAB] traMADol [Ultram 50 MG tab] 50 mg PO Q6HR PRN #12 tablet 08/12/17 08/19/17 Unknown Rx amLODIPine [Norvasc] 10 mg PO QDAY #30 tablet 08/20/17 Unknown Rx Gabapentin [Neurontin] 300 mg PO BID #60 cap 09/24/17 Unknown Rx methOCARBAMOL [Robaxin TAB] 500 mg PO Q6H PRN #15 tablet 09/24/17 Unknown Rx traMADol [Ultram] 50 mg PO Q6HR PRN #15 tablet 09/24/17 Unknown Rx Acetaminophen/Codeine [Tylenol 1 tab PO Q6H PRN #12 tab 12/17/17 Unknown Rx /Codeine # 3 tab] Cyclobenzaprine [Flexeril] 10 mg PO TID PRN #30 tablet 12/17/17 Unknown Rx ED Physical Exam - General Limitations: No Limitations General appearance: alert, in no apparent distress - Head Head exam: Present: atraumatic, normocephalic - Eye Eye exam: Present: normal appearance - ENT ENT exam: Present: mucous membranes moist - Neck Neck exam: Present: normal inspection - Respiratory Respiratory exam: Present: normal lung sounds bilaterally. Absent: respiratory distress - Cardiovascular Cardiovascular Exam: Present: regular rate, normal rhythm. Absent: systolic murmur, diastolic murmur, rubs, gallop - GI/Abdominal GI/Abdominal exam: Present: soft, normal bowel sounds - Rectal Rectal exam: Present: deferred - Extremities Exam Extremities exam: Present: normal inspection, tenderness, normal capillary refill, joint swelling. Absent: pedal edema, calf tenderness - Expanded Lower Extremity Exam Left Foot/Toe exam: Present: tenderness, swelling, erythema (mild erythema ). Absent : abrasion, laceration, ecchymosis, deformity, crepidus, dislocation, amputation , puncture wound, foreign body, calcaneal tenderness, tenderness at base of 5th metatarsal, nail avulsion, subungual hematoma Neuro vascular tendon exam: Present: no vascular compromise, foot drop (chronic post cva ). Absent: pulse deficit, abnormal cap refill, motor deficit, sensory deficit, tendon deficit, extremity cold to touch, pallor, abnormal 2-point discrimination, decreased fine/light touch, peroneal nerve deficit, significant pain with passive ROM of distal joint Gait: Positive: observed and limited by pain - Back Exam Back exam: Present: normal inspection - Neurological Exam Neurological exam: Present: alert, oriented X3, CN II-XII intact, normal gait, reflexes normal. Absent: motor sensory deficit - Psychiatric Psychiatric exam: Present: normal affect, normal mood - Skin Skin exam: Present: warm, dry, intact, normal color. Absent: rash ED Course Vital Signs 12/17/17 17:23 Temperature 99.1 F Pulse Rate 94 H Respiratory 16 Rate Blood Pressure 165/85 O2 Sat by Pulse 100 Oximetry ED Lower Extremity MDM - Radiology Data Radiology results: report reviewed, image reviewed X-rays of the ankle demonstrate osteopenia chronic with possible new fourth and fifth metatarsal head stress fractures - Medical Decision Making X-rays of the ankle demonstrate osteopenia chronic with possible new fourth and fifth metatarsal head stress fractures patient has MICHAELA boot foot placed in same plan DC to home with prescriptions for Flexeril and Tylenol #3 When Necessary Severe Pain patient will follow up with [facility] doctor call tomorrow to set up an appointment for definitive treatment of stress fractures patient and family members verbalized agreement and understanding with same patient to DC to home in stable condition at this time patient iis ambulatory with cane with MICHAELA Boot. Critical care attestation.: If time is entered above; I have spent that time in minutes in the direct care of this critically ill patient, excluding procedure time. ED Disposition Clinical Impression: Osteopenia of left foot Stress fracture of left foot Qualifiers: Encounter type: initial encounter Qualified Code(s): M84.375A - Stress fracture , left foot, initial encounter for fracture Disposition: TO HOME OR SELFCARE Is pt being admited?: No Does the pt Need Aspirin: No Condition: Stable Instructions: Foot Fracture in Adults (ED) Additional Instructions: Follow-up [place] orthopedic doctor tomorrow Prescriptions: Acetaminophen/Codeine [Tylenol /Codeine # 3 tab] 1 tab PO Q6H PRN #12 tab PRN Reason: pain Cyclobenzaprine [Flexeril] 10 mg PO TID PRN #30 tablet PRN Reason: Muscle Spasm Referrals: MYRON REAL MD [Staff Physician] - 3-5 Days Forms: Work/School Release Form(ED) Time of Disposition: 21:56
--- NOTE | 2017-12-17 21:27 | XRay Report ---
FINAL REPORT EXAM: XR FOOT 3+V LT HISTORY: pain swelling TECHNIQUE: Left foot three views PRIORS: None. FINDINGS: Skeletal structures are diffusely osteopenic. Noted are vascular surgical clips at the lower leg. At the heads of the 4th and 5th metatarsals there is some periosteal reaction and mild deformity with a sclerotic focus seen through the head of the 5th metatarsal. Could reflect remote healing fractures versus stress fracture. No additional acute skeletal findings. No erosive bony changes are identified. Joint spaces are within normal limits. IMPRESSION: Osteopenia Findings suggestive of stress fractures versus remote healed fractures at the heads of the 4th and 5th metatarsals
--- NOTE | 2017-12-17 21:28 | XRay Report ---
FINAL REPORT EXAM: XR ANKLE 2V LT HISTORY: pain swelling TECHNIQUE: Three views left ankle PRIORS: None. FINDINGS: Skeletal structures are diffusely osteopenic. Surgical clips noted lower by likely indicating prior vascular surgery. No fracture is identified. No dislocation seen. Ankle mortise is intact no evidence of joint space widening. No erosive or degenerative changes are identified. No evidence of joint effusion. IMPRESSION: Osteopenia evidence for prior vascular surgery No acute abnormality identified
== END 2017-12-17 22:05 | disposition home or self-care (01) ==
LOC: ED 17:06
DX: M84.375A Stress fracture, left foot, initial encounter for fracture (principal); M85.872 Other specified disorders of bone density and structure, left ankle and foot; I10 Essential (primary) hypertension; E11.9 Type 2 diabetes mellitus without complications; M19.90 Unspecified osteoarthritis, unspecified site; F17.200 Nicotine dependence, unspecified, uncomplicated; A52.03 Syphilitic endocarditis; Z95.818 Presence of other cardiac implants and grafts; Z79.899 Other long term (current) drug therapy
CPT/HCPCS: 99283

== ENCOUNTER 2018-01-16 17:25 | Emergency (ER) | payer MEDICARE ==
[2018-01-16 17:41] VITALS: BP 174/92
== END 2018-01-16 18:50 | disposition left against medical advice (07) ==
LOC: ED 17:25
DX: R07.89 Other chest pain (principal); Z53.21 Procedure and treatment not carried out due to patient leaving prior to being seen by health care provider
CPT/HCPCS: 93005; 93010